=== PATIENT | female | born 1970 | race Caucasian/White ===

== ENCOUNTER 2016-09-25 05:53 | Inpatient (IN) | payer MEDICARE ==
[~2016-09-25] VITALS: Ht 176.5 cm; Wt 107.2 kg
[~2016-09-25 05:53] MED LIST: AMBI10TA PO; BUSP5TAB PO; COLE1TAB2 PO; FISHCAP4 PO; HYDR-3533 PO; MELO-1 PO; OXYB5TAB10 PO; SIMV20TA PO; VITA10002 PO
[2016-09-25] MEDS ORDERED: VANCOMYCIN HCL 1000 MG ON-CALL/NS 250 ML IV SCH ×2 (06:15)
[2016-09-25] MEDS ORDERED: SODIUM CHLOR 0.9% 1000 ML INJ 1,000 ML IV SCH (06:15)
[2016-09-25] MEDS ORDERED: CHLORHEXIDINE GLUCONATE 2 % 1 PACK (2 CLOTHS) TOPICAL PRN (06:30)
[2016-09-25] MEDS ORDERED: SODIUM CHLORID 0.9% 500 ML IV PRN (06:30)
[2016-09-25] MEDS ORDERED: LACTATED RINGER'S 1000 ML IV PRN (06:30)
[2016-09-25] MEDS ORDERED: INSULIN HUMAN REGULAR 1,000 UNITS/10 ML VIAL SQ PRN (06:30)
[2016-09-25] MEDS ORDERED: POVIDONE IODINE 5% (ANTISEPSIS KIT) 4 APPLICATIONS EACH NARE PRN (06:30)
[2016-09-25] MEDS ORDERED: METOPROLOL TARTRATE 25 MG TAB PO PRN (06:30)
[2016-09-25 06:58] VITALS: BP 117/69; PULSE 60; RESP 16; TEMP 98.4; O2SAT 99
[2016-09-25 07:10] LABS: BLOOD, URINE NEG (NEG); COMMENT (UR) CULT NOT INDICATED; CULTURE IF INDICATED CULT NOT INDICATED; GLUCOSE,URINE NEG (NEG); KETONE, URINE NEG (NEG); MUCUS URINE FEW /lpf (OCC); NITRITE,URINE NEG (NEG); SQUAMOUS EPITHELIAL CELL URINE 10 /hpf (0-5); URINE COLOR YELLOW (YELLW/STRAW)
[2016-09-25] MEDS ORDERED: THROMBIN (TOPICAL) 5,000 UNIT VIAL ONE (07:16)
[2016-09-25] MEDS ORDERED: ceFAZolin 2 GM PREMIX 50 ML ONE (07:16)
[2016-09-25] MEDS ORDERED: GELFOAM SIZE 100 ONE (07:16)
[2016-09-25] MEDS ORDERED: GENTAMICIN SULFATE 80 MG/2 ML VIAL ONE (07:16)
[2016-09-25] MEDS ORDERED: ARTIFICIAL TEARS OPTH OINT 3.5 APPLIC/3.5 GM TUBO ONE (07:59)
[2016-09-25] MEDS ORDERED: ACETAMINOPHEN 1000 MG/100 ML VIAL IV ONE (07:59)
[2016-09-25] MEDS ORDERED: FAMOTIDINE 20 MG/2 ML VIAL ONE (07:59)
[2016-09-25] MEDS ORDERED: fentaNYL CITRATE 250 MCG/5 ML AMP ONE ×3 (08:00→14:11)
[2016-09-25] MEDS ORDERED: MIDAZOLAM HCL 2 MG/2 ML VIAL ONE (08:00)
[2016-09-25] MEDS ORDERED: ePHEDrine/NS 25 MG/5 ML SYR IV ONE (11:16)
[2016-09-25] MEDS ORDERED: ONDANSETRON HCL 4 MG/2 ML VIAL IV PUSH ONE (11:16)
[2016-09-25] MEDS ORDERED: PROPOFOL 200 MG/20 ML AMP IV ONE (11:16)
[2016-09-25] MEDS ORDERED: LACTATED RINGER'S 1000 ML INJ 2,000 ML IV ONE (11:17)
[2016-09-25] MEDS ORDERED: EPINEPHrine HCL (1:1000) 1 MG/ML VIAL ONE (13:56)
[2016-09-25] MEDS ORDERED: BUPIVACAINE HCL PF 0.5% 30 ML VIAL ONE (13:56)
[2016-09-25] MEDS ORDERED: ACETAMINOPHEN 325 MG TAB PO PRN (14:45)
[2016-09-25] MEDS ORDERED: diphenhydrAMINE HCL 50 MG/ML VIAL IV PRN (14:45)
[2016-09-25] MEDS ORDERED: NALOXONE HCL 0.4 MG/ML AMP IV PRN (14:45)
[2016-09-25] MEDS ORDERED: ACETAMINOPHEN/HYDROcodone 325 MG/10 MG TAB PO PRN (14:45)
[2016-09-25] MEDS ORDERED: HYDROmorphone HCL PCA 6 MG/30 ML IV SCH ×2 (14:45)
[2016-09-25] MEDS ORDERED: MORPHINE SULFATE 4 MG/ML INJ IV PUSH PRN (14:45)
[2016-09-25] MEDS ORDERED: MENTHOL LOZENGE BUCCAL PRN (14:45)
[2016-09-25] MEDS ORDERED: RESP: ALBUTEROL 2.5 MG/3 ML NEB (PRN) INH (14:45)
[2016-09-25] MEDS ORDERED: DO NOT ADM ANY ANTICOAGULANT DRUGS PRN (15:08)
[2016-09-25] MEDS ORDERED: *morphine SULFATE 8 MG/ML PERIprocedure ONLY ONE ×2 (15:22→15:37)
[2016-09-25] MEDS: NS + KCL 20 MEQ INJ 1,000 ML IV SCH ×2 (15:45→23:37)
--- NOTE | 2016-09-25 16:09 | PD.OP ---
Operative Report Date of Surgery: Sep 25, 2016 Preoperative Diagnosis: L4-5 spondylolisthesis Postoperative Diagnosis: L4-5 spondylolisthesis Procedure: L4-5 laminectomy, interbody arthrodhesis using PEEK cage and autologous bone graft, L4-5 instrumental fixation using transpedicular screws and rods, L4-5 posterolateral fusion using autologous bone graft and rods. Microsurgical dissection Anesthesia: general Surgeon: Juan Daniel Holland Bottling Attendant(s): Venessa Pillai Operation and Findings: INDICATIONS FOR THE SURGICAL PROCEDURE Ms Rockwell is a 46 year-old female who presented with intractable mechanical back pain and atmmy evidence of L5 lower extremity radiculopathy. She had spondylolisthesis at L4-5. She failed maximum nonsurgical management including multiple modalities of conservative treatment as well as pain management interventions by an interventional pain specialist. A surgical decompression and arthrodhesis were indicated as a last resort. The [id number] details of the procedure, indications, alternatives, risks and potential complications were fully discussed with the patient. The patient fully understood. All the questions were answered. No guarantees were given. The patient voiced requesting the procedure and provided informed consents. The patient was offered the alternative of delaying the procedure and continuing with nonsurgical management. DETAILS OF THE SURGICAL PROCEDURE Prior to the procedure, the surgical incision was marked in the preoperative surgical holding room, and the procedure, risks, and potential complications revisited with the patient. Placement of electrodes for intraoperative neurophysiological monitoring was completed. The patient was taken to the operative room, and following induction of general anesthesia, endotracheal intubation was performed. A Reagan catheter, bilateral ROXIE hose and sequential compression devices were placed and kept throughout the procedure. The patient was positioned prone, over a Kirby table over a Tesfaye frame. All pressure in the preoperative surgical holding room points were carefully padded with eggcrate and gel mattress. The eyes were tapped shut after ointment was applied by the anesthesiologist to prevent corneal abrasion. A Heather hugger was placed over the expossed lower body to maintain control of the core body temperature. The electrophysiological team placed the needles and electrodes in their proper location and baseline SSEP's and motor evoked potentials were registered prior and following the positioning. The entrance to each pedicles was marked using a C arm. The lumbar region was prepped and draped in the usual sterile fashion. The surgical procedure was performed in several steps as follow: SURGICAL APPROACH Once the patient was positioned, a localizing cross-table lateral x-ray was performed with a C-arm. Two paramedian small incisions were outlined on the skin approximately 3cm from the midline. The skin incisions were made with a # 10 blade. Small bleeders were controlled with the cautery. The dissection was then carried out into deper planes and through the thoracolumbar fascia with a Bovie. The intermuscular septum was identified and the muscles were blunted dissected along the septum. The facets and transverse process of L4, L5 and S1 were exposed and the proper anatomical landmarks were identified. A microsurgical self-retaining retractor was placed on the incision, and a localizing lateralizing cross-table x-ray was performed with an instrument underneath a lamina of the lumbar spine. There was a bilateral pars defect with gross instability of the bony structures. INSTRUMENTAL FIXATION At this point in the procedure, placement of bilateral transpedicular screws was necessary for stabilization of the spine. Initially, the entry point for the screw was selected anatomically at the junction of the facet, with the transverse process, and the pars interarticularis at L5 and at the sacrum. This was started with a Giamshetti needle, followed by the use of an cohen wire, and then a tap was used to create the threads for the screws. Finally bilateral transpedicular screws were carefully placed bilaterally at L4, L5 under fluoroscopic visualization. An appropriate purchase was achieved with all screws. The position of each screw was assessed anatomically with an AP, lateral , oblique Xrays. An intraoperative scan view of the spine was then performed using the iso-centric c-arm. Each screw was then assessed electrophysiologically with a nerve stimulator. SURGICAL DECOMPRESSION There was significant mass effect with compression of the neural structures. In order to relieve neural compression, it was necessary to perform a decompressive laminectomy, with decompression of the spinal canal and bilateral lateral recesses. Note that the scope of such decompression was significantly more extensive than the minimal exposure necessary to perform an interbody fusion, as there was extreme facet arthropathy with near complete collapse of the disk spaces and severe stenosis cause by the hyperthrophic joint facets. At this point of the procedure the operative microscope was draped in the usual sterile fashion and brought to the field. The rest of the surgical procedure was performed using microdissection technique with the exception of the closure. Under the operating microscope, a decompressive laminectomy was carried out at L4-5 as follow: The laminae, base of the spinous processes and facets were carefully drilled exposing the ligamentum flavum. The facets were abnormal with severe facet arthropathy, vacuum facets, and mass effect over the neural structures. A broad disk protusion was contributing to compression of the neural structures and exiting L5, and S1 nerve roots. A near complete facetectomy was necessary resulting in further mechanical instability. The ligamentum flavum appeared hypertrophic, resulting on mass effect on the dorsal surface of the neural structures. The superior free border of the ligamentum flavum was elevated with a ligament dissector and the ligamentum flavum was removed with a 3 and 4 mm Kerrison forceps. The ligament was very adherent to the dural sac and during the dissection, ans extreme care was taken during the dissection. The exiting nerve roots were identified, and a wide foraminotomy was performed with a Kerrison in their trajectory towards the neural foramen at both levels. A synovial cyst was seen at L4-5 on the left side. It was carefully dissected. It was very adherent to the dura and a small durotomy could not be avoided. It was clised with 6-0 Prolene and the closure reinforsed with Duraseal. Epidural veins located laterally to the dural sac were coagulated with the bipolar cautery, and then incised using microscissors. Gentle medial retraction of the dural sac allowed me to expose the disc space for the discectomy. Upon completion of the discectomy, an excellent decompression of the neural structures was achieved. HARVESTING OF ILIAC CREST BONE A fascial incision was then made over the patient's right posterior iliac crest. The fascia was carefully opened with a Bovie and the posterior iliac crest was exposed. A small cortical window was created with an osteotome. Cancellous bone was then harvested, to be used during the interbody arthrodesis and the posterolateral fusion. Once an appropriate amount of bone was obtained , the incision was irrigated with antibiotic solution and hemostasis secured by packing the iliac crest with Surgicel. The cortical window was then repositioned and secured using 0 Vicryl sutures. The incision was irrigated and the fascia was closed with interrupted 0 Vicryl sutures. The subcutaneous tissue was approximated with 3-0 Vicryl sutures. INTERBODY ARTHRODHESIS In order to correct the narrowing of the disk space and maintain distraction of the space, and to achieve a solid interbody fusion, it was necessary the insertion of an interbody device into the disk space. Otherwise, the disk space would collapse, compromising the result of the surgical procedure. At this point of the procedure, the annulus fibrosus of the disk was carefully coagulated with a bipolar cautery and incised using an 11 bladed knife. Then, a microdiscectomy was carried out in a standard fashion using a combination of straight and up-biting pituitary forceps. A reverse angle curette was applied underneath the posterior longitudinal ligament, and used to push the disk fragments into the disk space, so they can be safely removed with a pituitary forceps. Once the discectomy was completed, it was necessary to decorticate the endplates, in order to eliminate the cartilaginous endplate and to expose healthy bone appropriate to perform the interbody fusion. The endplates at L4-5 , and L5-S1 were then thoroughly decorticated using increasing size bone alana and ring curets, eliminating the cartilaginous fragments from both, the superior and inferior endplates. A disk space distractor was applied to the pedicle screws and gentle distraction was applied. This maneuver was assisted by the use of a disk distractor. Once a thorough preparation of the disk space was achieved, the disk space was irrigated with antibiotic solution, and the interbody fusion was performed by carefully impacting expandable PPEK cages filled with autologous iliac crest bone graft. The cages were properly deployed and thereafter packed with further bone graft by the use of a funnel. A solid position of the cage with good purchase was achieved at both levels. The position of the cages were assessed anatomically with a probe and radiologically with the C-arm. POSTEROLATERAL FUSION The posterolateral fusion is a critical component to the procedure, to prevent future fatigue and failure of the instrumental fixation. Initially, the transverse processes of the vertebral bodies, lateral surface of the facets and the lateral gutters of the spine were carefully cleaned, eliminating all soft tissue and muscle attachments. The area was then irrigated with a large amount of antibiotic solution. Subsequently, the transverse processes, lateral surface of the facets, and lateral gutters of the spine were thoroughly decorticated using the TPS drill with a 5mm cutting skyler, exposing cancellous bone, in preparation for the posterolateral fusion. The incision was again irrigated with antibiotic solution. Then, the posterolateral fusion was then performed by carefully packing the lateral gutters of the spine at L4-5 with autologous iliac crest bone combined with demineralized bone matrix. I packed as much bone as possible. COMPLETION OF THE INSTRUMENTATION AND CLOSURE The rods were brought to the field, applied to all the screws, and the screw caps were sequentially applied. Compression was performed between the pedicle screws, and final tightening of the screws was completed using a torque wrench The incision was again thoroughly irrigated with several liters of antibiotic solution, and hemostasis secured with the bipolar cautery. A Valsalva Maneuver performed by the anesthesiologist failed to show any evidence of cerebrospinal fluid leak or bleeding. A 7 mm Kirby-Sheth drain was left in the epidural space and externalized through a separate stab incision. The incision was then closed in planes. 0 Vicryl was used in an interrupted fashion to close the thoracolumbar fascia and the superficial fascia. The subcutaneous tissue was then approximated using 3-0 Vicryl in an interrupted fashion. Special care was taken to avoid space. The skin was then closed with 4-0 Vicryl in a running, subcuticular fashion. Dermabond was applied to the skin. Each plane of closure was irrigated with antibiotic solution. At the end of the procedure the sponge, needle and instrument counts were all correct. Estimated blood loss was cc or less. No blood transfusion was given. The entire procedure was performed using continuous electrophysiological monitoring of the somatosensorial evoked potentials and EMG. The patient received prophylactic antibiotics. The patient was then extubated and transferred to the recovery room in stable condition. Juan Daniel Holland MD Sep 25, 2016 16:09
--- NOTE | 2016-09-25 16:10 | EKG ---
Date Performed: 09/25/2016 Time Performed: 06:55:42 PTAGE: 46 years EKG: SINUS BRADYCARDIA BORDERLINE ECG NO PREVIOUS TRACING DOCTOR: Aniyah Stanley Interpretating Date/Time 09/25/2016 16:09:39
[2016-09-25] MEDS: ceFAZolin 2 GM PREMIX 50 ML IV SCH ×3 (16:30→23:32)
[2016-09-25 16:54] VITALS: BP 130/84; PULSE 91; RESP 16; TEMP 96.8; O2SAT 100
--- NOTE | 2016-09-25 17:27 | RADRPT ---
EXAM DATE/TIME: 09/25/2016 09:29 [place] COMPARISON: No previous studies available for comparison. INDICATIONS : Fusion L4,L5 with screws and rods placement. MEDICAL HISTORY : None. SURGICAL HISTORY : None. ENCOUNTER: Initial ACUITY: 1 day PAIN SCORE: Non-responsive. LOCATION: Bilateral Lumbar spine. FINDINGS: Postop transpedicular screw and terri fixation across L4-5 with disc spacer present. Normal alignment. CONCLUSION: 1. Postoperative change as above. Jorge Chavez MD on September 25, 2016 at 17:23 Board Certified Radiologist. This report was verified electronically.
[2016-09-25 20:00] VITALS: BP 123/74; PULSE 81; RESP 18; TEMP 96; O2SAT 96
[2016-09-25] MEDS: DOCUSATE SODIUM 100 MG CAP PO SCH (20:05)
[2016-09-25] MEDS: SODIUM CHLORIDE 0.9% FLUSH 5 ML FLUSH IVF SCH (20:05)
[2016-09-25] MEDS: busPIRone HCL 5 MG TAB PO SCH (20:05)
[2016-09-25] MEDS: ACETAMINOPHEN/HYDROcodone 325 MG/10 MG TAB PO PRN (20:05)
[2016-09-25] MEDS: PRAVASTATIN SOD 40 MG TAB PO SCH (20:05)
[2016-09-25] MEDS ORDERED: COLESTIPOL 2 GM PO SCH (21:00)
[2016-09-25] MEDS ORDERED: NON-FORMULARY DRUG (Simvastatin 20 MG) PO SCH (21:00)
[2016-09-25] MEDS ORDERED: [UNRECOGNIZED DRUG - OTHER] PO SCH (21:00)
[2016-09-25 21:04] VITALS: O2SAT 99
[2016-09-25] MEDS: PCA - TOTAL MG DILAUDID DELIVERED PER SHIFT SCH (22:08)
[2016-09-25] MEDS: ZOLPIDEM TARTRATE 10 MG TAB PO PRN (23:30)
[2016-09-26] VITALS (11 sets, daily range): BP systolic 101–125; BP diastolic 51–69; PULSE 83–95; RESP 16–20; TEMP 96–98.9; O2SAT 93–99
[2016-09-26] MEDS: PCA - TOTAL MG DILAUDID DELIVERED PER SHIFT SCH ×3 (05:45→22:00)
[2016-09-26 06:31] LABS: AUTOMATED NEUTROPHIL # 13.8 TH/MM3 (1.8-7.7); BASOPHIL % 0.1 % (0.0-2.0); HEMATOCRIT 31.6 % (35.0-46.0); HEMO FLAGS DIFF FINAL; LYMPH % 3.6 % (9.0-44.0); LYMPHOCYTE # 0.5 TH/MM3 (1.0-4.8); MEAN CORPUSCULAR HEMOGLOBIN 31.9 PG (27.0-34.0); MEAN CORPUSCULAR HGB CONC 34.3 % (32.0-36.0); MONO % 4.7 % (0.0-8.0); NEUT % 91.6 % (16.0-70.0); PLATELET COUNT 123 TH/MM3 (150-450); WHITE BLOOD COUNT 15.1 TH/MM3 (4.0-11.0)
[2016-09-26 06:58] LABS: BICARBONATE 27.5 MEQ/L (21.0-32.0); POTASSIUM 4.1 MEQ/L (3.5-5.1)
[2016-09-26] MEDS ORDERED: NON-FORMULARY DRUG (Fish Oil-Cholecalciferol (Fish Oil + D3) 1 CAP) PO SCH (09:00)
[2016-09-26] MEDS: SODIUM CHLORIDE 0.9% FLUSH 5 ML FLUSH IVF SCH ×2 (09:08→20:11)
[2016-09-26] MEDS: ceFAZolin 2 GM PREMIX 50 ML IV SCH (09:08)
[2016-09-26] MEDS: MAGNESIUM HYDROXIDE SUSP 30 ML CUP PO PRN (09:10)
[2016-09-26] MEDS: busPIRone HCL 5 MG TAB PO SCH ×2 (09:11→20:09)
[2016-09-26] MEDS: NS + KCL 20 MEQ INJ 1,000 ML IV SCH ×2 (09:11→20:11)
[2016-09-26] MEDS: CYANOCOBALAMIN 1,000 MCG TAB PO SCH (09:11)
[2016-09-26] MEDS: DOCUSATE SODIUM 100 MG CAP PO SCH ×2 (09:11→20:09)
[2016-09-26] MEDS: PANTOPRAZOLE SODIUM 40 MG VIAL IVP SCH (09:12)
--- NOTE | 2016-09-26 10:50 | HHI.NSPN ---
History Interval History Patient is awake and alert. Postop day 1 status post L4 5 fusion. States having only moderate incisional pain. No complaints of radicular pain. Exam Results Vital Signs Date Time Temp Pulse Resp B/P Pulse Ox O2 Delivery O2 Flow Rate FiO2 09/26/16 10:40 99 21 09/26/16 08:00 97.3 83 18 106/66 09/25/16 21:04 Nasal Cannula 2.00 Intake and Output 09/25/16 09/25/16 09/26/16 08:00 16:00 00:00 Intake Total 1800 ml 1511 ml Output Total 950 ml 455 ml Balance 850 ml 1056 ml Physical Examination General: Awake and alert. Neurological: Motor function 5 over 5 upper and lower extremities. Sensory intact to primary modalities. Lumbar dressing dry and intact. PEDRO LUIS drains are putting out serosanguineous fluid. Lab, Micro, Other Results Laboratory Tests Test 09/26/16 05:53 White Blood Count 15.1 Red Blood Count 3.40 Hemoglobin 10.8 Hematocrit 31.6 Mean Corpuscular Volume 93.0 Mean Corpuscular Hemoglobin 31.9 Mean Corpuscular Hemoglobin 34.3 Concent Red Cell Distribution Width 12.0 Platelet Count 123 Mean Platelet Volume 11.9 Neutrophils (%) (Auto) 91.6 Lymphocytes (%) (Auto) 3.6 Monocytes (%) (Auto) 4.7 Eosinophils (%) (Auto) 0.0 Basophils (%) (Auto) 0.1 Neutrophils # (Auto) 13.8 Lymphocytes # (Auto) 0.5 Monocytes # (Auto) 0.7 Eosinophils # (Auto) 0.0 Basophils # (Auto) 0.0 CBC Comment DIFF FINAL Differential Comment Sodium Level 143 Potassium Level 4.1 Chloride Level 110 Carbon Dioxide Level 27.5 Anion Gap 6 Blood Urea Nitrogen 11 Creatinine 0.64 Estimat Glomerular Filtration 100 Rate Random Glucose 111 Calcium Level 7.6 Medical Decision Making Impression and Plan Status post L4 5 posterior lumbar fusion and pedicle screw instrumentation. Plan: Patient will remain at bed rest today per Dr. Holland' orders. Begin mobilization tomorrow. Kayden Cordoba MD Sep 26, 2016 10:50
[2016-09-26] MEDS: CYCLOBENZAPRINE HCL 10 MG TAB PO PRN ×2 (11:21→22:32)
[2016-09-26] MEDS: ACETAMINOPHEN/HYDROcodone 325 MG/10 MG TAB PO PRN ×3 (11:21→22:32)
[2016-09-26] MEDS: ONDANSETRON HCL 4 MG/2 ML VIAL IV PRN ×2 (12:31→18:40)
[2016-09-26] MEDS: SODIUM CHLORIDE 0.9% FLUSH 5 ML FLUSH IVF PRN ×2 (12:31→18:40)
--- NOTE | 2016-09-26 13:35 | PD.CONS ---
HPI Service [facility] Hospitalists Consult Requested By Dr. Sutton Reason for Consult Medical management Primary Care Physician Non-Staff Diagnoses: History of Present Illness Written by Grazyna Rodriguez, acting as scribe for Dr. Solis on 09/26/16 at 1335. Ms. Landeros is a 46-year-old female with a known medical history of hyperlipidemia who presented to hospital for an L4-5 posterior lumbar fusion and pedicle screw instrumentation by Dr. Holland today 09/26/16. Hospitalist team has been consulted for medical management. Patient seen and examined in hospital room. Medical history reviewed, patient states that she is sent back and neck pain for quite some time now has been following with Dr. Holland. She also has hyperlipidemia which is controlled with medication at this time. 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 PCP is Dr. Gonzalez who she follows with the outpatient setting. Denies any recent fever, chills, cough, chest pain, shortness of breath, abdominal pain, vomiting or diarrhea or dysuria. At this time, patient is awake, alert, oriented. States that pain is well controlled. Complains of some nausea due to pain medicine. Denies any numbness, tingling. Review of Systems Musculoskeletal: COMPLAINS OF: Muscle aches, Back pain, Neck pain Except as stated in HPI: all other systems reviewed are Neg Past Family Social History Allergies: Coded Allergies: No Known Allergies (Unverified , 09/25/16) Past Medical History Hyperlipidemia Thrombocytopenia, chronic Unknown "blood disorder from " Past Surgical History Hysterectomy 2016 Ectopic x 2 Reported Medications Active Lortab (Hydrocodone-Acetaminophen) 5-325 Mg Tab 1 Tab PO Q8HR PRN Reported Vitamin B-12 (Cyanocobalamin) 1,000 Mcg Tab 2,500 Mcg PO DAILY Fish Oil + D3 (Fish Oil-Cholecalciferol) 1,200-1,000 Mg-Unit Cap 1 Cap PO DAILY Colestipol (Colestipol HCl) 1 Gm Tab 2 Gm PO BID Ambien (Zolpidem Tartrate) 10 Mg Tab 10 Mg PO HS PRN Buspirone (Buspirone HCl) 5 Mg Tab 5 Mg PO BID Simvastatin 20 Mg Tab 20 Mg PO HS Active Ordered Medications Current Medications Medications (Trade) Dose Ordered Sig/Ruddy Route Start Time Stop Time Status Last Admin (NS + KCl 20 Meq Inj) 1,000 ml @ 100 mls/hr Q10H IV 09/25/16 14:45 09/26/16 09:11 (NS Flush) 2 ml UNSCH PRN IVF 09/25/16 14:45 09/26/16 12:31 (NS Flush) 2 ml BID IVF 09/25/16 21:00 (Colace) 100 mg BID PO 09/25/16 21:00 09/26/16 09:11 (Milk Of Magnesia Liq) 30 ml DAILY PRN PO 09/25/16 14:45 09/26/16 09:10 (Protonix Inj) 40 mg DAILY IVP 09/26/16 09:00 09/26/16 09:12 (Zofran Inj) 4 mg Q6H PRN IV 09/25/16 14:45 09/26/16 12:31 (Morphine Inj) 2 mg Q2H PRN IV PUSH 09/25/16 14:45 09/25/16 17:37 (Flexeril) 10 mg Q8H PRN PO 09/25/16 14:45 09/26/16 11:21 (Tylenol) 650 mg Q4H PRN PO 09/25/16 14:45 ([place]) 1 lozenge UNSCH PRN BUCCAL 09/25/16 14:45 (Narcan Inj) 0.4 mg UNSCH PRN IV 09/25/16 14:45 (Benadryl Inj) 25 mg Q6H PRN IV 09/25/16 14:45 (Dilaudid BLAST SETTER Inj) 6 mg UNSCH IV 09/25/16 14:45 09/25/16 15:51 BLAST SETTER Dosage Infused (Pha) 1 Q8HR .XX 09/25/16 14:45 09/26/16 05:45 ([place] 10-325 Mg) 1 tab Q4H PRN PO 09/25/16 14:45 09/26/16 11:21 ([place] 10-325 Mg) 2 tab Q4H PRN PO 09/25/16 14:45 (Buspar) 5 mg BID PO 09/25/16 21:00 09/26/16 09:11 (Vitamin B12) 2,500 mcg DAILY PO 09/26/16 09:00 09/26/16 09:11 (Ambien) 10 mg HS PRN PO 09/25/16 15:00 09/25/16 23:30 (Pravachol) 40 mg HS PO 09/25/16 21:00 09/25/16 20:05 Patient Own Medication PT OWN MED: COLESTI... BID PO 09/25/16 21:00 Hold Miscellaneous Information ALL NURSING DEPARTME... UNSCH PRN .XX 09/25/16 15:08 09/26/16 15:07 Family History Paternal medical family history includes cardiovascular disease and stroke. Maternal family medical history significant for colon cancer. Social History Patient lives at home, has five children. Denies any current tobacco use. Admits to occasional alcohol use. Denies any illicit drug use. Physical Exam Vital Signs Vital Signs Date Time Temp Pulse Resp B/P Pulse Ox O2 Delivery O2 Flow Rate FiO2 09/26/16 12:42 18 09/26/16 12:00 96.9 85 18 105/58 93 09/26/16 11:35 18 09/26/16 10:40 99 21 09/26/16 08:00 97.3 83 18 106/66 98 09/26/16 04:00 98.8 95 16 105/65 95 09/26/16 00:00 96.0 91 20 125/69 97 09/25/16 21:04 99 Nasal Cannula 2.00 09/25/16 20:00 96.0 81 18 123/74 96 09/25/16 17:59 17 09/25/16 16:54 96.8 91 16 130/84 100 09/25/16 16:30 98.0 94 17 122/74 98 Nasal Cannula 2 09/25/16 16:15 91 17 128/76 100 Nasal Cannula 2 09/25/16 16:00 88 17 124/67 100 Nasal Cannula 2 09/25/16 15:51 17 09/25/16 15:45 92 15 119/63 100 Nasal Cannula 3 09/25/16 15:30 87 15 117/63 99 Nasal Cannula 3 09/25/16 15:11 97.7 92 15 116/64 100 Nasal Cannula 3 Physical Exam GENERAL: This is a well-nourished, well-developed patient, in no apparent distress. SKIN: No rashes, ecchymoses or lesions. Warm and dry. HEENT: Atraumatic. Normocephalic. Pupils equal round and reactive. Extraocular motions intact. No scleral icterus. Nose without bleeding. Airway patent. NECK: Trachea midline. No JVD. Supple. CARDIOVASCULAR: Regular rate and rhythm. No murmur appreciated.. RESPIRATORY: Clear to auscultation. Breath sounds equal bilaterally. No wheezes , rales, or rhonchi. GASTROINTESTINAL: Abdomen soft, non-tender, nondistended. No guarding. MUSCULOSKELETAL: Extremities without clubbing, cyanosis, or edema. No joint tenderness, effusion, or edema noted. NEUROLOGICAL: Awake and alert. Cranial nerves II through XII intact. Motor and sensory grossly within normal limits. Five out of 5 muscle strength in all muscle groups. Normal speech. Sensory intact. Lumbar dressing c/d/i. PEDRO LUIS drains in place, serosanguineous fluid noted. Laboratory Laboratory Tests Test 09/26/16 05:53 White Blood Count 15.1 Red Blood Count 3.40 Hemoglobin 10.8 Hematocrit 31.6 Mean Corpuscular Volume 93.0 Mean Corpuscular Hemoglobin 31.9 Mean Corpuscular Hemoglobin 34.3 Concent Red Cell Distribution Width 12.0 Platelet Count 123 Mean Platelet Volume 11.9 Neutrophils (%) (Auto) 91.6 Lymphocytes (%) (Auto) 3.6 Monocytes (%) (Auto) 4.7 Eosinophils (%) (Auto) 0.0 Basophils (%) (Auto) 0.1 Neutrophils # (Auto) 13.8 Lymphocytes # (Auto) 0.5 Monocytes # (Auto) 0.7 Eosinophils # (Auto) 0.0 Basophils # (Auto) 0.0 CBC Comment DIFF FINAL Differential Comment Sodium Level 143 Potassium Level 4.1 Chloride Level 110 Carbon Dioxide Level 27.5 Anion Gap 6 Blood Urea Nitrogen 11 Creatinine 0.64 Estimat Glomerular Filtration 100 Rate Random Glucose 111 Calcium Level 7.6 Result Diagram: 09/26/16 0553 09/26/16 0553 Imaging Last Impressions Lumbar Spine X-Ray 09/25/16 0000 Signed Impressions: Service Date/Time: Sunday, September 25, 2016 09:29 - CONCLUSION: 1. Postoperative change as above. Jorge Chavez MD Assessment and Plan Assessment and Plan Ms. Landeros is a 46-year-old female with a known medical history of hyperlipidemia who presented to hospital for an L4-5 posterior lumbar fusion and pedicle screw instrumentation by Dr. Holland today 09/26/16. Hospitalist team has been consulted for medical management. Status post L4-5 posterior lumbar fusion and pedicle screw instrumentation. - Postop day 1, 09/26/16 - Neurosurgery following. - Control pain, [place] 10/325 mg PO PRN per pain scale. Morphine IV PRN breakthrough pain - Monitor for constipation, Colace scheduled. Milk of magnesium PRN constipation. - Encourage by mouth intake, continue IVF. - Frequent neuro checks - Bedrest for 48 hours. Start oob on 09/27/16 per neuro. - Dressing changes per neurosurgery recommendations. Leukocytosis with bandemia suspect secondary to stress reaction due to surgery - WBC 15.1. No signs and symptoms of infection. Afebrile. - Repeat CBC in am. Normocytic normochromic anemia, chronic Thrombocytopenia, chronic - Platelet count today 123. Monitor. No signs of bleeding. - Hemoglobin 10.8. Will follow. Nausea: Zofran PRN. Monitor. Hyperlipidemia, chronic: Continue pravastatin. Anxiety, chronic: Continue at home Buspar. GI prophylaxis: Protonix DVT prophylaxis: SCDs. Chemical prophylaxis per neurosurgery. Thank you for this consultation. Will follow with you. This note was transcribed by scribe [Grazyna Rodriguez]. I, Dr. Yayo Solis personally performed the history, physical exam, and medical decision making; and confirmed the accuracy of the information in the transcribed note. Authenticated by Dr. Yayo Solis on 09/29/16 at 14:17. Grazyna Rodriguez Sep 26, 2016 13:35 Yayo Solis MD Sep 29, 2016 14:18
[2016-09-26] MEDS: PRAVASTATIN SOD 40 MG TAB PO SCH (20:09)
[2016-09-27 03:32] VITALS: BP 99/58; PULSE 83; RESP 17; TEMP 97.5; O2SAT 97
[2016-09-27] MEDS: PCA - TOTAL MG DILAUDID DELIVERED PER SHIFT SCH ×3 (06:00→21:15)
[2016-09-27] MEDS: NS + KCL 20 MEQ INJ 1,000 ML IV SCH ×2 (06:15→14:59)
[2016-09-27 07:35] VITALS: BP 96/50; PULSE 77; RESP 17; TEMP 98.1; O2SAT 94
[2016-09-27 07:44] LABS: AUTOMATED NEUTROPHIL # 6.5 TH/MM3 (1.8-7.7); BASOPHIL % 0.1 % (0.0-2.0); EOSINOPHIL % 0.2 % (0.0-4.0); HEMATOCRIT 28.5 % (35.0-46.0); LYMPH % 13.3 % (9.0-44.0); LYMPHOCYTE # 1.1 TH/MM3 (1.0-4.8); MEAN CELL VOLUME 93.8 FL (80.0-100.0); MEAN CORPUSCULAR HGB CONC 34.1 % (32.0-36.0); MONO % 8.2 % (0.0-8.0); NEUT % 78.2 % (16.0-70.0); PLATELET COUNT 95 TH/MM3 (150-450); RED BLOOD COUNT 3.04 MIL/MM3 (4.00-5.30); RED CELL DISTRIBUTION WIDTH 12.1 % (11.6-17.2); WHITE BLOOD COUNT 8.4 TH/MM3 (4.0-11.0)
[2016-09-27 07:53] LABS: HEMO FLAGS AUTO DIFF
[2016-09-27] MEDS: SODIUM CHLORIDE 0.9% FLUSH 5 ML FLUSH IVF SCH ×2 (09:00→21:15)
[2016-09-27 09:26] LABS: PLATELET ESTIMATE SMEAR LOW (NORMAL); PLATELET MORPHOLOGY NORMAL (NORMAL); SCAN/DIFF AUTO DIFF CONFIRMED
[2016-09-27] MEDS: DOCUSATE SODIUM 100 MG CAP PO SCH ×2 (10:10→21:15)
[2016-09-27] MEDS: busPIRone HCL 5 MG TAB PO SCH ×2 (10:10→21:15)
[2016-09-27] MEDS: PANTOPRAZOLE SODIUM 40 MG VIAL IVP SCH (10:11)
[2016-09-27] MEDS: CYANOCOBALAMIN 1,000 MCG TAB PO SCH (10:11)
[2016-09-27] MEDS: ACETAMINOPHEN/HYDROcodone 325 MG/10 MG TAB PO PRN ×4 (10:12→21:15)
--- NOTE | 2016-09-27 10:26 | HHI.NSPN ---
History Interval History Patient is awake and alert. Postop day 2 status post L4 5 fusion. States having only moderate incisional pain. No complaints of radicular pain. Yesterday was having some mild headache and nausea but none this morning. Exam Results Vital Signs Date Time Temp Pulse Resp B/P Pulse Ox O2 Delivery O2 Flow Rate FiO2 09/27/16 07:35 98.1 77 17 96/50 94 09/26/16 20:50 21 09/25/16 21:04 Nasal Cannula 2.00 Intake and Output 09/26/16 09/26/16 09/27/16 08:00 16:00 00:00 Intake Total 1215 ml 1511 ml 982 ml Output Total 460 ml 550 ml 650 ml Balance 755 ml 961 ml 332 ml Physical Examination General: Awake and alert. Neurological: Motor function 5 over 5 upper and lower extremities. Sensory intact to primary modalities. Lumbar dressing dry and intact. PEDRO LUIS drains with decreasing serosanguineous fluid. Lab, Micro, Other Results Laboratory Tests Test ood Count 8.4 Red Blood Count 3.04 Hemoglobin 9.7 Hematocrit 28.5 Mean Corpuscular Volume 93.8 Mean Corpuscular Hemoglobin 32.0 Mean Corpuscular Hemoglobin 34.1 Concent Red Cell Distribution Width 12.1 Platelet Count 95 Mean Platelet Volume 12.1 Neutrophils (%) (Auto) 78.2 Lymphocytes (%) (Auto) 13.3 Monocytes (%) (Auto) 8.2 Eosinophils (%) (Auto) 0.2 Basophils (%) (Auto) 0.1 Neutrophils # (Auto) 6.5 Lymphocytes # (Auto) 1.1 Monocytes # (Auto) 0.7 Eosinophils # (Auto) 0.0 Basophils # (Auto) 0.0 CBC Comment AUTO DIFF Differential Comment AUTO DIFF CONFIRMED Platelet Estimate LOW Platelet Morphology Comment NORMAL Red Cell Morphology Comment NORMAL Medical Decision Making Impression and Plan Status post L4 5 posterior lumbar fusion and pedicle screw instrumentation. Stable postop course. Plan: Up in chair today per Dr. Holland' orders. Kayden Cordoba MD Sep 27, 2016 10:26
[2016-09-27 11:09] VITALS: O2SAT 97
[2016-09-27 11:35] VITALS: BP 122/65; PULSE 77; RESP 17; TEMP 98.5; O2SAT 96
--- NOTE | 2016-09-27 13:41 | HHI.PR ---
Subjective Remarks Written by Grazyna Rodriguez, acting as scribe for Dr. Solis on 09/27/16 at 1327. Follow up L4-L5 fusion. Patient seen and examined today, sitting up in chair eating lunch comfortably. Denies any new acute complaints overnight. Pain well controlled. Has been out of bed walking, tolerating well. Denies any weakness, numbness or tingling. Nausea resolved from yesterday. Denies any recent fever, chills, cough, shortness of breath ab pain or diarrhea. Objective Vitals Vital Signs Date Time Temp Pulse Resp B/P Pulse Ox O2 Delivery O2 Flow Rate FiO2 09/27/16 11:35 98.5 77 17 122/65 96 09/27/16 11:09 97 21 09/27/16 07:35 98.1 77 17 96/50 94 09/27/16 03:32 97.5 83 17 99/58 97 09/26/16 23:00 98.9 87 18 109/53 98 09/26/16 20:50 98 21 09/26/16 19:21 98.0 84 18 101/51 94 09/26/16 16:00 98.9 90 18 116/58 97 09/26/16 14:00 18 I/O 09/26/16 09/26/16 09/26/16 09/27/16 09/27/16 09/27/16 07:00 15:00 23:00 07:00 15:00 23:00 Intake Total 1215 ml 480 ml 2013 ml 1183 ml 575 ml Output Total 460 ml 550 ml 650 ml 780 ml 12 ml Balance 755 ml -70 ml 1363 ml 403 ml 563 ml Intake Oral 300 ml 480 ml 360 ml 360 ml IV Total 915 ml 1653 ml 823 ml 575 ml Output Urine Total 450 ml 550 ml 600 ml 750 ml Drainage Total 10 ml 50 ml 30 ml 12 ml # Voids 0 # Bowel Movements 0 0 0 0 Result Diagram: 09/27/16 0627 09/26/16 0553 Imaging Last Impressions Lumbar Spine X-Ray 09/25/16 0000 Signed Impressions: Service Date/Time: Sunday, September 25, 2016 09:29 - CONCLUSION: 1. Postoperative change as above. Jorge Chavez MD Objective Remarks GENERAL: Well-nourished, well-developed female patient, sitting up in chair eating lunch in no apparent distress. SKIN: No rashes, ecchymoses or lesions. Warm and dry. HEENT: Atraumatic. Normocephalic. Pupils equal round and reactive. Extraocular motions intact. No scleral icterus. Nose without bleeding. Airway patent. NECK: Trachea midline. No JVD. Supple. CARDIOVASCULAR: Regular rate and rhythm. No murmur appreciated.. RESPIRATORY: Clear to auscultation. Breath sounds equal bilaterally. No wheezes , rales, or rhonchi. GASTROINTESTINAL: Abdomen soft, non-tender, nondistended. No guarding. MUSCULOSKELETAL: Extremities without clubbing, cyanosis, or edema. No joint tenderness, effusion, or edema noted. NEUROLOGICAL: Awake and alert. Cranial nerves II through XII intact. Motor and sensory grossly within normal limits. Five out of 5 muscle strength in all muscle groups. Normal speech. Sensory intact. Lumbar dressing c/d/i. PEDRO LUIS drains in place, serosanguineous fluid noted. A/P Assessment and Plan Ms. Landeros is a 46-year-old female with a known medical history of hyperlipidemia who presented to hospital for an L4-5 posterior lumbar fusion and pedicle screw instrumentation by Dr. Holland today 09/26/16. Hospitalist team has been consulted for medical management. Status post L4-5 posterior lumbar fusion and pedicle screw instrumentation. - Postop day 2, 09/25/16 - Neurosurgery following. - Lumbar spine x-ray reviewed with normal postoperative findings. - Control pain, [place] 10/325 mg PO PRN per pain scale. Morphine IV PRN breakthrough pain - Monitor for constipation, Colace scheduled. Milk of magnesium PRN constipation. - Encourage by mouth intake, monitor and document intake, if adequate will dc IVF. - Frequent neuro checks. - OK for oob today per neurosurgery orders. Patient doing well. - Dressing changes per neurosurgery recommendations. Leukocytosis with bandemia suspect secondary to stress reaction due to surgery - WBC 15.1 --> 8.4 No signs and symptoms of infection. Afebrile. Stable. Normocytic normochromic anemia, chronic Thrombocytopenia, chronic - Platelet count reviewed, 123 --> 95. Worsening. No signs of bleeding. - Hemoglobin reviewed 10.8 --> 9.7. - Requesting records from PCP regarding chronic thrombocytopenia, exact diagnosis and previous treatment and workup. Follow. - Recheck CBC in am. Nausea: Zofran PRN. Monitor. Hyperlipidemia, chronic: Continue pravastatin. Anxiety, chronic: Continue at home Buspar. GI prophylaxis: Protonix DVT prophylaxis: SCDs. Chemical prophylaxis per neurosurgery. This note was transcribed by rozibshanta [Grazyna Rodriguez]. I, Dr. Yayo Solis personally performed the history, physical exam, and medical decision making; and confirmed the accuracy of the information in the transcribed note. Authenticated by Dr. Yayo Solis on 09/27/16 at 15:27. Grazyna Rodriguez Sep 27, 2016 13:41 Yayo Solis MD Sep 27, 2016 15:27
[2016-09-27 16:00] VITALS: BP 116/66; PULSE 80; RESP 17; TEMP 97.1; O2SAT 98
[2016-09-27 20:09] VITALS: BP 120/55; PULSE 77; RESP 16; TEMP 99.8; O2SAT 97
[2016-09-27] MEDS: PRAVASTATIN SOD 40 MG TAB PO SCH (21:14)
[2016-09-27] MEDS: CYCLOBENZAPRINE HCL 10 MG TAB PO PRN (21:15)
[2016-09-28 00:42] VITALS: BP 111/63; PULSE 83; RESP 20; TEMP 98.4; O2SAT 95
[2016-09-28] MEDS: NS + KCL 20 MEQ INJ 1,000 ML IV SCH ×2 (00:53→09:21)
[2016-09-28] MEDS: ZOLPIDEM TARTRATE 10 MG TAB PO PRN (01:26)
[2016-09-28] MEDS: ACETAMINOPHEN/HYDROcodone 325 MG/10 MG TAB PO PRN ×2 (01:27→09:20)
[2016-09-28] MEDS: PCA - TOTAL MG DILAUDID DELIVERED PER SHIFT SCH (01:27)
[2016-09-28 06:59] LABS: AUTOMATED NEUTROPHIL # 4.6 TH/MM3 (1.8-7.7); BASOPHIL % 0.3 % (0.0-2.0); EOSINOPHIL # 0.1 TH/MM3 (0-0.4); EOSINOPHIL % 1.4 % (0.0-4.0); HEMATOCRIT 28.3 % (35.0-46.0); LYMPH % 17.2 % (9.0-44.0); LYMPHOCYTE # 1.1 TH/MM3 (1.0-4.8); MEAN CELL VOLUME 93.3 FL (80.0-100.0); MEAN CORPUSCULAR HEMOGLOBIN 32.3 PG (27.0-34.0); MEAN CORPUSCULAR HGB CONC 34.6 % (32.0-36.0); MONO % 10.2 % (0.0-8.0); NEUT % 70.9 % (16.0-70.0); PLATELET COUNT 87 TH/MM3 (150-450); RED BLOOD COUNT 3.04 MIL/MM3 (4.00-5.30); RED CELL DISTRIBUTION WIDTH 12.1 % (11.6-17.2); WHITE BLOOD COUNT 6.5 TH/MM3 (4.0-11.0)
[2016-09-28 07:03] LABS: HEMO FLAGS AUTO DIFF
[2016-09-28 07:57] VITALS: BP 129/69; PULSE 70; RESP 17; TEMP 98.5; O2SAT 98
[2016-09-28 08:06] LABS: PLATELET ESTIMATE SMEAR LOW (NORMAL); PLATELET MORPHOLOGY NORMAL (NORMAL); SCAN/DIFF AUTO DIFF CONFIRMED
[2016-09-28] MEDS: PANTOPRAZOLE SODIUM 40 MG VIAL IVP SCH (09:19)
[2016-09-28] MEDS: MAGNESIUM HYDROXIDE SUSP 30 ML CUP PO PRN (09:20)
[2016-09-28] MEDS: CYANOCOBALAMIN 1,000 MCG TAB PO SCH (09:20)
[2016-09-28] MEDS: busPIRone HCL 5 MG TAB PO SCH (09:20)
[2016-09-28] MEDS: DOCUSATE SODIUM 100 MG CAP PO SCH (09:20)
[2016-09-28] MEDS: SODIUM CHLORIDE 0.9% FLUSH 5 ML FLUSH IVF SCH (09:21)
[2016-09-28] MEDS ORDERED: HYDR-3583 PO (10:35)
--- NOTE | 2016-09-28 10:38 | HHI.DS ---
Juan Daniel Holland MD 09/28/16 1038: Discharge Summary Admission Date Sep 25, 2016 at 05:55 Discharge Date: Sep 28, 2016 Admitting Diagnosis lumbar spondylolisthesis Procedures TLIF Brief History Admutted for elective TLIF, discharged without complications CBC/BMP: 09/28/16 0632 09/26/16 0553 Significant Findings Laboratory Tests Test 09/26/16 09/27/16 09/28/16 05:53 06:27 06:32 White Blood Count 15.1 TH/MM3 (4.0-11.0) Red Blood Count 3.40 MIL/MM3 3.04 MIL/MM3 3.04 MIL/MM3 (4.00-5.30) (4.00-5.30) (4.00-5.30) Hemoglobin 10.8 GM/DL 9.7 GM/DL 9.8 GM/DL (11.6-15.3) (11.6-15.3) (11.6-15.3) Hematocrit 31.6 % 28.5 % 28.3 % (35.0-46.0) (35.0-46.0) (35.0-46.0) Platelet Count 123 TH/MM3 95 TH/MM3 87 TH/MM3 (150-450) (150-450) (150-450) Mean Platelet Volume 11.9 FL 12.1 FL 11.9 FL (7.0-11.0) (7.0-11.0) (7.0-11.0) Neutrophils (%) (Auto) 91.6 % 78.2 % 70.9 % (16.0-70.0) (16.0-70.0) (16.0-70.0) Lymphocytes (%) (Auto) 3.6 % (9.0-44.0) Neutrophils # (Auto) 13.8 TH/MM3 (1.8-7.7) Lymphocytes # (Auto) 0.5 TH/MM3 (1.0-4.8) Chloride Level 110 MEQ/L (98-107) Random Glucose 111 MG/DL (74-106) Calcium Level 7.6 MG/DL (8.5-10.1) Monocytes (%) (Auto) 8.2 % (0.0-8.0) 10.2 % (0.0-8.0) Platelet Estimate LOW (NORMAL) LOW (NORMAL) Hospital Course Stable Pt Condition on Discharge: Good Discharge Disposition: Discharge Home Discharge Instructions DIET: Follow Instructions for: As Tolerated, No Restrictions Speech Therapy-Diet Recommenda: Regular ACTIVITIES You can perform: Weight Bearing As Grace Activities to Avoid: Driving for 24 hrs, Lifting/Bending, Weight Bearing, Prolonged Standing, Strenuous Activity, Sexual Activity Follow up Referrals: PCP Follow-up - 1 Week New Medications: Sennosides-Docusate Sodium (Harriet-Colace) 8.6-50 Mg Tab 1 TAB PO BID Constipation #60 Ref 0 TAB Hydrocodone-Acetaminophen (Hydrocodone-Acetaminophen) 10-325 mg Tab 1 TAB PO Q8HR PRN PAIN SCALE 1 TO 5 #90 TAB Continued Medications: Buspirone (Buspirone) 5 Mg Tab 5 MG PO BID Anxiety Ref 0 TAB Colestipol (Colestipol) 1 Gm Tab 2 GM PO BID Cholesterol Management #120 Ref 0 TAB Cyanocobalamin (Vitamin B-12) 1,000 Mcg Tab 2500 MCG PO DAILY Nutritional Supplement #1 Ref 0 BOTTLE Fish Oil-Cholecalciferol (Fish Oil + D3) 1,200-1,000 Mg-Unit Cap 1 CAP PO DAILY Nutritional Supplement #30 Ref 0 CAP Hydrocodone-Acetaminophen (Lortab) 5-325 Mg Tab 1 TAB PO Q8HR PRN PAIN #90 Ref 0 TAB Simvastatin (Simvastatin) 20 Mg Tab 20 MG PO HS Cholesterol Management #30 Ref 0 TAB Zolpidem (Ambien) 10 Mg Tab 10 MG PO HS PRN INSOMNIA Ref 0 TAB Mary Petersen 09/29/16 1514: Discharge Summary Admission Date 09/25/16 Discharge Date: Sep 28, 2016 Admitting Diagnosis s/p lumbar fusion (1) S/P lumbar spinal fusion ICD Code: Z98.1 CBC/BMP: 09/28/16 0632 09/26/16 0553 Hospital Course Ms. Landeros underwent a L4-5 laminectomy, interbody arthrodhesis using PEEK cage and autologous bone graft, L4-5 instrumental fixation using transpedicular screws and rods, L4-5 posterolateral fusion using autologous bone graft and rods. Microsurgical dissection on Sep 25, 2016. She was discharged home in stable conditions. Pt Condition on Discharge: Stable Discharge Disposition: Discharge HomeACLF/RADHA Discharge Instructions DIET: Follow Instructions for: Heart Healthy Diet ACTIVITIES You can perform: Weight Bearing As Grace Follow up Referrals: PCP Follow-up - 1 Week New Medications: Sennosides-Docusate Sodium (Harriet-Colace) 8.6-50 Mg Tab 1 TAB PO BID Constipation #60 Ref 0 TAB Hydrocodone-Acetaminophen (Hydrocodone-Acetaminophen) 10-325 mg Tab 1 TAB PO Q8HR PRN PAIN SCALE 1 TO 5 #90 TAB Continued Medications: Buspirone (Buspirone) 5 Mg Tab 5 MG PO BID Anxiety Ref 0 TAB Colestipol (Colestipol) 1 Gm Tab 2 GM PO BID Cholesterol Management #120 Ref 0 TAB Cyanocobalamin (Vitamin B-12) 1,000 Mcg Tab 2500 MCG PO DAILY Nutritional Supplement #1 Ref 0 BOTTLE Fish Oil-Cholecalciferol (Fish Oil + D3) 1,200-1,000 Mg-Unit Cap 1 CAP PO DAILY Nutritional Supplement #30 Ref 0 CAP Hydrocodone-Acetaminophen (Lortab) 5-325 Mg Tab 1 TAB PO Q8HR PRN PAIN #90 Ref 0 TAB Simvastatin (Simvastatin) 20 Mg Tab 20 MG PO HS Cholesterol Management #30 Ref 0 TAB Zolpidem (Ambien) 10 Mg Tab 10 MG PO HS PRN INSOMNIA Ref 0 TAB Juan Daniel Holland MD Sep 28, 2016 10:38 Mary Petersen Sep 29, 2016 15:14
[2016-09-28] MEDS ORDERED: PERI8.6T PO (11:14)
--- NOTE | 2016-09-28 11:22 | HHI.PR ---
Subjective Remarks Follow-up lumbar fusion, anemia and thrombocytopenia. Denies any pain ambulating. Patient has voided. No BM but passing gas denies abdominal pain and nausea. States she has history of anemia and thrombocytopenia. Patient made aware of CBC results today. Will follow up outpatient. Discussed with RN Objective Vitals Vital Signs Date Time Temp Pulse Resp B/P Pulse Ox O2 Delivery O2 Flow Rate FiO2 09/28/16 07:57 98.5 70 17 129/69 98 09/28/16 00:42 98.4 83 20 111/63 95 09/27/16 20:09 99.8 77 16 120/55 97 09/27/16 16:00 97.1 80 17 116/66 98 09/27/16 11:35 98.5 77 17 122/65 96 I/O 09/27/16 09/27/16 09/27/16 09/28/16 09/28/16 09/28/16 07:00 15:00 23:00 07:00 15:00 23:00 Intake Total 1183 ml 1295 ml 720 ml 720 ml Output Total 780 ml 1162 ml 1005 ml 1600 ml Balance 403 ml 133 ml -285 ml -880 ml Intake Oral 360 ml 720 ml 720 ml 720 ml IV Total 823 ml 575 ml Output Urine Total 750 ml 1150 ml 1000 ml 1600 ml Drainage Total 30 ml 12 ml 5 ml 0 ml # Voids 0 # Bowel Movements 0 0 Result Diagram: 09/28/16 0632 09/26/16 0553 Imaging Last Impressions Lumbar Spine X-Ray 09/25/16 0000 Signed Impressions: Service Date/Time: Sunday, September 25, 2016 09:29 - CONCLUSION: 1. Postoperative change as above. Jorge Chavez MD Objective Remarks GENERAL: Well-nourished, well-developed female patient in no apparent distress. SKIN: No rashes, ecchymoses or lesions. Warm and dry. HEENT: Atraumatic. Normocephalic. Pupils equal round and reactive. Extraocular motions intact. No scleral icterus. Nose without bleeding. Airway patent. NECK: Trachea midline. No JVD. Supple. CARDIOVASCULAR: Regular rate and rhythm. No murmur appreciated.. RESPIRATORY: Clear to auscultation. Breath sounds equal bilaterally. No wheezes , rales, or rhonchi. GASTROINTESTINAL: Abdomen soft, non-tender, nondistended. No guarding. MUSCULOSKELETAL: Extremities without clubbing, cyanosis, or edema. No joint tenderness, effusion, or edema noted. NEUROLOGICAL: Awake and alert. Cranial nerves II through XII intact. Motor and sensory grossly within normal limits. Five out of 5 muscle strength in all muscle groups. Normal speech. Sensory intact. Lumbar dressing c/d/i. PEDRO LUIS drains in place, serosanguineous fluid noted. A/P Problem List: (1) Thrombocytopenia ICD Code: D69.6 Status: Acute (2) Postoperative anemia due to acute blood loss ICD Code: D62 Status: Acute Assessment and Plan Ms. Landeros is a 46-year-old female with a known medical history of hyperlipidemia who presented to hospital for an L4-5 posterior lumbar fusion and pedicle screw instrumentation by Dr. Holland 09/26/16. Hospitalist team has been consulted for medical management. Status post L4-5 posterior lumbar fusion and pedicle screw instrumentation. - Stable - Control pain, [place] 10/325 mg PO PRN per pain scale. Morphine IV PRN breakthrough pain - Monitor for constipation, Colace scheduled. Milk of magnesium PRN constipation. We'll discharge with Harriet-Colace - Encourage by mouth intake, monitor and document intake, dc IVF. - Frequent neuro checks. - Dressing changes per neurosurgery recommendations. Leukocytosis with bandemia suspect secondary to stress reaction due to surgery - WBC 15.1 --> 8.4 No signs and symptoms of infection. Afebrile. Resolved Normocytic normochromic anemia, chronic Thrombocytopenia, chronic - Platelet count reviewed. No signs of bleeding. - Hemoglobin reviewed. Stable - Requesting records from PCP regarding chronic thrombocytopenia, exact diagnosis and previous treatment and workup. Records not yet available - Recheck CBC outpatient. Nausea: Zofran PRN. Monitor. Hyperlipidemia, chronic: Continue pravastatin. Anxiety, chronic: Continue at home Buspar. GI prophylaxis: Protonix DVT prophylaxis: SCDs. Chemical prophylaxis per neurosurgery. Discharge Planning Stable for discharge Tristen Rome MD Sep 28, 2016 11:22
== END 2016-09-28 11:51 | disposition home or self-care (01) | DRG 460 ==
LOC: HSDI 05:55 → N06A 16:53
PROVIDERS: ADMIT Neurological Surgery; ATTEND Neurological Surgery
PROC: 00BT0ZZ Excision of Spinal Meninges, Open Approach (ICD-10-PCS; 2016-09-25)
PROC: 0SB20ZZ Excision of Lumbar Vertebral Disc, Open Approach (ICD-10-PCS; 2016-09-25)
PROC: 0QB20ZZ Excision of Right Pelvic Bone, Open Approach (ICD-10-PCS; 2016-09-25)
PROC: 00QT0ZZ Repair Spinal Meninges, Open Approach (ICD-10-PCS; 2016-09-25)
PROC: 4A11X4G Monitoring of Peripheral Nervous Electrical Activity, Intraoperative, External Approach (ICD-10-PCS; 2016-09-25)
PROC: 0SG00A1 (ICD-10-PCS; principal; 2016-09-25 08:11)
DX: M43.16 Spondylolisthesis, lumbar region (principal); D62 Acute posthemorrhagic anemia; D69.6 Thrombocytopenia, unspecified; G96.19 Other disorders of meninges, not elsewhere classified; M51.16 Intervertebral disc disorders with radiculopathy, lumbar region; E78.5 Hyperlipidemia, unspecified; D72.825 Bandemia; R11.0 Nausea; F41.9 Anxiety disorder, unspecified; F32.9 Major depressive disorder, single episode, unspecified; E66.9 Obesity, unspecified; Z68.34 Body mass index [BMI] 34.0-34.9, adult
CPT/HCPCS: 36415; 72100; 76000; 80048; 81001; 85025; 86077; 86850; 86870; 86900; 86901; 86902; 86920; 86922; 93005; 94150; C1713; C9113; J0131; J0171; J0690; J1170; J1580; J2250; J2270; J2405; J3010; J3370; J3480; J7050; J7120; L0484